=== PATIENT | male | born 1990 | race Caucasian/White ===

== ENCOUNTER 2023-01-22 21:53 | Emergency (ER) | payer BC ==
[2023-01-22 22:01] VITALS: TEMP 98.6
--- NOTE | 2023-01-22 23:39 | ED ---
General Adult HPI - General Chief complaint: Extremity Injury, Lower Stated complaint: Left Ankle Injury Time Seen by Provider: 01/22/23 23:32 Source: patient, RN notes reviewed Mode of arrival: wheelchair Limitations: no limitations - History of Present Illness Initial comments: 32-year-old male with no significant past medical history presents to the emergency department with a chief complaint of left ankle pain. Patient reports that this morning with his dog earlier this evening at approximately 9:30 PM. He reports that his left ankle started to feel numb and he is reporting worsening pain and swelling. He denies any known trauma or injury. He is not taking her symptoms. He denies any tingling or weakness in the extremity. - Related Data Allergies Allergy/AdvReac Type Severity Reaction Status Date / Time No Known Allergies Allergy Verified 01/22/23 22:01 Review of Systems ROS Statement: Those systems with pertinent positive or pertinent negative responses have been documented in the HPI. ROS Other: All systems not noted in ROS Statement are negative. Past Medical History Past Medical History: No Reported History History of Any Multi-Drug Resistant Organisms: None Reported Past Surgical History: No Surgical Hx Reported Past Psychological History: No Psychological Hx Reported Smoking Status: Never smoker Past Alcohol Use History: None Reported Past Drug Use History: None Reported General Exam - General Exam Comments Initial Comments: General: Alert, in no acute distress Head: atraumatic normocephalic. Eyes PERRL, EOMI intact, mucous membranes moist Respiratory: Lungs clear to auscultation bilaterally Cardiovascular: Regular rate and rhythm Abdominal: Soft without guarding or rebound Extremities: Normal inspection with full range of motion and normal capillary refill, left ankle with mild edema to the lateral malleolus, 2+ DP/PT pulses, Distal NVI remains intact Neuroogic: alert and oriented 3, CN II-XII intact, able to ambulate with steady gait Skin: warm dry and intact with normal color Limitations: no limitations Course Vital Signs 01/22/23 01/23/23 21:58 00:54 Temperature 98.6 F Pulse Rate 99 95 Respiratory 20 16 Rate Blood Pressure 142/83 138/78 O2 Sat by Pulse 98 99 Oximetry - Reevaluation(s) Reevaluation #1: 01/22/23 23:39 Visual history and physical exam performed. Patient offered Tylenol or Motrin for pain however he declined at this time. Medical Decision Making - Medical Decision Making Was pt. sent in by a medical professional or institution ([facility]ALINI Holden, [facility], urgent care, hospital, or retirement...) When possible be specific @ -[No] Did you speak to anyone other than the patient for history (EMS, parent, family, police, friend...)? What history was obtained from this source @ -[No] Did you review nursing and triage notes (agree or disagree)? Why? @ -[I reviewed and agree with nursing and triage notes] Were old charts reviewed (outside hosp., previous admission, EMS record, old EKG, old radiological studies, urgent care reports/EKG's, retirement records)? Report findings @ -[No old charts were reviewed] Differential Diagnosis (chest pain, altered mental status, abdominal pain women, abdominal pain men, vaginal bleeding, weakness, fever, dyspnea, syncope, headache, dizziness, GI bleed, back pain, seizure, CVA, palpatations, mental health, musculoskeletal)? @ -[not applicable] EKG interpreted by me (3pts min.). @ -[As above] X-rays interpreted by me (1pt min.). @ -X-rays negative for any evidence of acute fracture or dislocation CT interpreted by me (1pt min.). @ -[None done] U/S interpreted by me (1pt. min.). @ -[None done] What testing was considered but not performed or refused? (CT, X-rays, U/S, labs)? Why? @ -[None] What meds were considered but not given or refused? Why? @ -[None] Did you discuss the management of the patient with other professionals (professionals i.e. SHALINI Holden, [facility], lab, RT, psych nurse, social services counselor, switchboard receptionist, teacher, electorate officer, shelter case manager)? Give summary @ -[No] Was smoking cessation discussed for >3mins.? @ -[No] Was critical care preformed (if so, how long)? @ -[No] Were there social determinants of health that impacted care today? How? (Homelessness, low income, unemployed, alcoholism, drug addiction, transportation, low edu. Level, literacy, decrease access to med. care, usp, rehab)? @ -[No] Was there de-escalation of care discussed even if they declined (Discuss DNR or withdrawal of care, Hospice)? DNR status @ -[No] What co-morbidities impacted this encounter? (DM, HTN, Smoking, COPD, CAD, C ancer, CVA, ARF, Chemo, Hep., AIDS, mental health diagnosis, sleep apnea, morbid obesity)? @ -[None] Was patient admitted / discharged? Hospital course, mention meds given and route, prescriptions, significant lab abnormalities, going to OR and other pertinent info. @ -Discharged. This is a 32-year-old male who presents to the em ergency department with ankle pain. Patient had a thorough history and physical exam performed on the ED. Ankle with mild swelling and generalized tenderness. Limited range of motion secondary to pain. 2+Dp/PT pulses, Distal NVI. Patient had imaging performed which was negative. I discussed the results in detail with the patient verbalized understanding. Patient was given Toradol and provided crutch training and ankle air splint. He was discharged in stable condition. Return precautions discussed at length. Case discussed with Dr. Fernandez who agrees with plan of care Undiagnosed new problem with uncertain prognosis? @ -[No] Drug Therapy requiring intensive monitoring for toxicity (Heparin, Nitro, Insulin, Cardizem)? @ -[No] Were any procedures done? @ -[No] Diagnosis/symptom? @ -Ankle sprian Acute, or Chronic, or Acute on Chronic? @ -Acute Uncomplicated (without systemic symptoms) or Complicated (systemic symptoms)? @ -uncomplicated Side effects of treatment? @ -[No] Exacerbation, Progression, or Severe Exacerbation? @ -[No] Poses a threat to life or bodily function? How? (Chest pain, [place], [place], pneumonia, PE, COPD, DKA, ARF, appy, cholecystitis, CVA, Diverticulitis, Homicidal, Suicidal, threat to staff... and all critical care pts) @ -low likleihood Disposition Clinical Impression: Ankle sprain Disposition: HOME SELF-CARE Condition: Stable Instructions (If sedation given, give patient instructions): Ankle Sprain (ED) Additional Instructions: Please return to the nearest emergency department if symptoms worsen or persist Is patient prescribed a controlled substance at d/c from ED?: No Referrals: Ambreen Lanier DO [Primary Care Provider] - 1-2 days Rani Sewell DO [Doctor of Osteopathic Medicine] - 1-2 days Time of Disposition: 00:03
--- NOTE | 2023-01-23 00:10 | XR ---
EXAM: XR Left Ankle Complete, 3 or More Views CLINICAL HISTORY: ITS.REASON XR Reason: pain TECHNIQUE: Frontal, lateral and oblique views of the left ankle. COMPARISON: No previous studies. FINDINGS: Bones/joints: Ankle mortise is preserved. Calcaneus is unremarkable. Old fracture of the distal tip of the left fibula at the lateral malleolus. No dislocation. No fracture at the base of the left fifth metatarsal. Soft tissues: Soft tissue swelling about the lateral malleolus. IMPRESSION: 1. Soft tissue swelling about the lateral malleolus. 2. No acute fracture. 3. Ankle mortise is preserved
[2023-01-23 01:06] VITALS: BP 138/78; PULSE 95; RESP 16
== END 2023-01-23 00:54 | disposition home or self-care (01) ==
LOC: EC 21:53
DX: S93.402A Sprain of unspecified ligament of left ankle, initial encounter (principal); X58.XXXA Exposure to other specified factors, initial encounter
CPT/HCPCS: 73610; 99283; L4350